=== PATIENT | male | born 1990 | race Caucasian/White ===

== ENCOUNTER 2018-04-23 16:33 | Emergency (ER) | payer OTHER ==
[~2018-04-23] VITALS: Ht 170.2 cm; Wt 71.2 kg
== END 2018-04-23 21:35 | disposition home or self-care (01) ==
LOC: ER 16:33
DX: K52.9 Noninfective gastroenteritis and colitis, unspecified (principal); E86.0 Dehydration

== ENCOUNTER 2018-04-27 09:51 | Outpatient (CLI) | payer OTHER ==
[2018-04-28] MEDS ORDERED: PROTONIX40 MG PO (09:38)
[2018-04-28] MEDS ORDERED: INTESTINEX680 M1 PO (09:38)
== END 2018-04-27 09:58 | disposition home or self-care (01) ==
LOC: LAB 09:51
DX: R10.84 Generalized abdominal pain (principal)

== ENCOUNTER 2018-04-28 07:03 | Emergency (ER) | payer OTHER ==
[~2018-04-28] VITALS: Ht 170.2 cm; Wt 71.2 kg
[2018-04-28] MEDS ORDERED: INTESTINEX680 M1 PO (09:38)
[2018-04-28] MEDS ORDERED: PROTONIX40 MG PO (09:38)
== END 2018-04-28 11:21 | disposition home or self-care (01) ==
LOC: ER 07:03
DX: R10.32 Left lower quadrant pain (principal); R19.7 Diarrhea, unspecified